=== PATIENT | female | born 1995 | race American Indian/Alaskan Native ===

== ENCOUNTER 2016-11-21 14:22 | Observation (INO) | payer MEDICAID ==
[2016-11-21 14:27] VITALS: RESP 18; O2SAT 100
--- NOTE | 2016-11-21 14:40 | C.PDOC ---
Time Seen by Provider: 11/21/16 14:40 Chief Complaint (Nursing): Abdominal Pain Past Medical History Vital Signs: Last Vital Signs Temp 97.8 F 11/21/16 14:26 Pulse 78 11/21/16 14:26 Resp 18 11/21/16 14:26 BP 106/74 11/21/16 14:26 Pulse Ox 100 11/21/16 14:26 - Social History Hx Alcohol Use: No Hx Substance Use: No - Immunization History Hx Tetanus Toxoid Vaccination: Yes Hx Influenza Vaccination: No Hx Pneumococcal Vaccination: Yes ED Course And Treatment O2 Sat by Pulse Oximetry: 100 Disposition - Disposition Forms: [email or web address] (Greek)
--- NOTE | 2016-11-21 14:46 | C.PDOC ---
History Of Present Illness 21 year old female presents to the ED with complaints of new onset of sharp and localized right pelvic and right lower quadrant pain beginning two hours prior to arrival. Patient is 0 2 1. She also complains of vaginal spotting and dry mouth. Patient notes EGA is 6 weeks and has had many episodes of vomiting "due to the ." She has a history of prior UTIs "due to dehydration." Patient denies fever, past surgical history, or other complaints at this time. Time Seen by Provider: 11/21/16 14:40 Chief Complaint (Nursing): Abdominal Pain History Per: Patient History/Exam Limitations: no limitations Onset/Duration Of Symptoms: Hrs (2 hours prior to arrival ) Current Symptoms Are (Timing): Still Present Quality Of Discomfort: "Pain" Associated Symptoms: Vomiting (patient attributes to ). denies: Fever , Chills Recent travel outside of the [place]: No Abnormal Vaginal Bleeding: Yes : 4 Para: 1 Past Medical History Reviewed: Historical Data, Nursing Documentation, Vital Signs Vital Signs: Last Vital Signs Temp 97.8 F 11/21/16 14:26 Pulse 78 11/21/16 14:26 Resp 18 11/21/16 14:26 BP 106/74 11/21/16 14:26 Pulse Ox 100 11/21/16 17:27 Family History: States: Unknown Family Hx - Social History Hx Alcohol Use: No Hx Substance Use: No - Immunization History Hx Tetanus Toxoid Vaccination: Yes Hx Influenza Vaccination: No Hx Pneumococcal Vaccination: Yes Review Of Systems Constitutional: Negative for: Fever, Chills Cardiovascular: Negative for: Chest Pain Respiratory: Negative for: Shortness of Breath Gastrointestinal: Positive for: Vomiting (patient attributes to ), Abdominal Pain Genitourinary: Positive for: Pelvic Pain (right pelvic pain ) Physical Exam - Physical Exam Appears: Non-toxic, In Acute Distress (patient appears to be in mild distress ) Skin: Warm, Dry Head: Atraumatic Eye(s): bilateral: Normal Inspection Oral Mucosa: Dry Neck: Supple Chest: Symmetrical, No Deformity Cardiovascular: Rhythm Regular Respiratory: Normal Breath Sounds, No Rales, No Rhonchi, No Wheezing Gastrointestinal/Abdominal: Soft, Tenderness (RLQ tenderness ), No Distention, No Guarding, No Rebound, Other (Abdomen is gravid ) Neurological/Psych: Oriented x3, Normal Speech, Normal Cognition ED Course And Treatment - Laboratory Results Result Diagrams: 11/21/16 14:54 11/21/16 14:54 O2 Sat by Pulse Oximetry: 100 (room air ) - CT Scan/US Transvaginal US Other Rad Studies (CT/US): Read By Radiologist, Radiology Report Reviewed CT/US Interpretation: UTERUS: Measures 11.1 x 6.2 x 6.9 cm. Normal in size and appearance. No fibroid or other mass lesion seen. ENDOMETRIUM: Intrauterine gestation identified. Mean sac diameter measures 1 point 7 cm. Yolk sac and pole are identified with heart rate recorded 93 beats per minute. Trace implantation related hemorrhage may be present the inferior margins of the decidual reaction. Mean crown-rump length measurement is 0.35 cm corresponding to an average ultrasonic age of 6 weeks 0 days. CERVIX: No cervical abnormality identified. RIGHT OVARY: Measures 4.2 x 2.2 x 3.1 cm. No solid mass. Normal intra-ovarian arterial blood flow. LEFT OVARY: Measures 5.2 x 4.1 x 6.3 cm. No solid mass. Normal intra-ovarian arterial blood flow. A corpus luteum cyst identified measuring 2.6 by 2.7 x 2.9 cm. Developing follicles are delete identified in the left ovary as well. FREE FLUID: A mild amount of anechoic fluid is seen in the cul-de-sac. OTHER FINDINGS: None. IMPRESSION: A single viable intrauterine gestation is identified within the endometrial cavity with an average ultrasonic age of 6 weeks 0 days based on mean crown-rump length measurement. Gestational dates based on LMP of 7 weeks 1 day. Trace implantation related hemorrhage is suggested related to the inferior margins of the decidual reaction. Clinical follow-up advised. Sonographic follow -up can be performed as clinically warranted. No ectopic gestation identified. Renal US Other Rad Studies (CT/US): Read By Radiologist, Radiology Report Reviewed CT/US Interpretation: FINDINGS: RIGHT KIDNEY: Measures: 11.4 x 3.4 x 3.3 cm. Normal in size, contour and echogenicity. No stone, solid mass lesion or hydronephrosis visualized. No perinephric fluid collection. LEFT KIDNEY: Measures: 10.9 x 5.6 x 3.4 cm. Normal in size, contour and echogenicity. No stone, solid mass lesion or hydronephrosis visualized. No perinephric fluid collection. OTHER FINDINGS: None. IMPRESSION: Unremarkable renal sonogram. Progress Note: UA, OB transvaginal US, and renal US were ordered. Patient was given Tylenol. Progress - Data Reviewed Data Reviewed: Lab, Diagnostic imaging, EKG, Old records ED OBSERVATION Discharge: Yes Date of observation admission: 11/21/16 Time of observation admission: 14:45 - Observation admission statement Patient is being placed in observation because:: ABD PAIN, PREG DEHYDRATION - Goals of Observation Goals of observation are:: NEG ACUTE ABD, SX IMPROVE - Progress Note Progress Note: 11/21/16 17:32 FEELS BETTER. TOLERATING PO WO DIFF. VSS Disposition Counseled Patient/Family Regarding: Studies Performed, Diagnosis, Need For Followup, Rx Given - Disposition Disposition: HOME/ ROUTINE Disposition Time: 17:33 Condition: IMPROVED - Clinical Impression Clinical Impression: Threatened , Nausea, Vomiting - Scribe Statement The provider has reviewed the documentation as recorded by the Janyibcarlos Avila All medical record entries made by the Janyibcarlos were at my direction and personally dictated by me. I have reviewed the chart and agree that the record accurately reflects my personal performance of the history, physical exam, medical decision making, and the department course for this patient. I have also personally directed, reviewed, and agree with the discharge instructions and disposition.
[2016-11-21 15:05] LABS: BASO # 0.1 K/uL (0.0-0.2); BASO % 1.1 % (0.0-2.0); EOS % 0.5 % (0.0-4.0); HEMATOCRIT 37.4 % (34.0-47.0); LYMPH # 1.2 K/uL (1.0-4.3); LYMPH % 17.5 % (20.0-40.0); MEAN CELL VOLUME 68.6 fL (81.0-99.0); MEAN CORPUSCULAR HEMOGLOBIN 22.1 pg (27.0-31.0); MEAN CORPUSCULAR HGB CONC 32.2 g/dL (33.0-37.0); MEAN PLATELET VOLUME 6.8 fL (7.2-11.7); MONO # 0.3 K/uL (0.0-0.8); MONO % 4.4 % (0.0-10.0); WHITE BLOOD COUNT 6.9 K/uL (4.8-10.8)
[2016-11-21 15:17] LABS: ALB/GLOB RATIO 1.1 (1.0-2.1); ALKALINE PHOSPHATASE 45 U/L (38-126); ALT/SGPT 23 U/L (9-52); AST/SGOT 16 U/L (14-36); BILIRUBIN,TOTAL 1.5 mg/dL (0.2-1.3); BLOOD UREA NITROGEN 12 mg/dL (7-17); CARBON DIOXIDE 24 mmol/L (22-30); CHLORIDE 99 mmol/L (98-107); GFR AFRICAN-AMERICAN > 60; GLUCOSE,RANDOM 74 mg/dL (65-105); POTASSIUM 3.9 mmol/L (3.6-5.2); SODIUM 137 mmol/L (132-148); TOTAL PROTEIN 7.7 g/dL (6.3-8.3)
--- NOTE | 2016-11-21 15:54 | US ---
PROCEDURE: Ultrasound of the Kidneys HISTORY: R PELVIC PAIN RO PYELO COMPARISON: None available. TECHNIQUE: Sonogram of the kidneys. FINDINGS: RIGHT KIDNEY: Measures: 11.4 x 3.4 x 3.3 cm. Normal in size, contour and echogenicity. No stone, solid mass lesion or hydronephrosis visualized. No perinephric fluid collection. LEFT KIDNEY: Measures: 10.9 x 5.6 x 3.4 cm. Normal in size, contour and echogenicity. No stone, solid mass lesion or hydronephrosis visualized. No perinephric fluid collection. OTHER FINDINGS: None. IMPRESSION: Unremarkable renal sonogram.
--- NOTE | 2016-11-21 16:00 | US ---
HISTORY: vb RO ECTOPIC, last menstrual period is reported 10/02/2016. This suggests an estimated gestational age of 7 weeks 1 day. COMPARISON: None available. TECHNIQUE: Transvaginal pelvis ultrasound was performed with longitudinal and transverse images submitted for interpretation. FINDINGS: UTERUS: Measures 11.1 x 6.2 x 6.9 cm. Normal in size and appearance. No fibroid or other mass lesion seen. ENDOMETRIUM: Intrauterine gestation identified. Mean sac diameter measures 1 point 7 cm. Yolk sac and pole are identified with heart rate recorded 93 beats per minute. Trace implantation related hemorrhage may be present the inferior margins of the decidual reaction. Mean crown-rump length measurement is 0.35 cm corresponding to an average ultrasonic age of 6 weeks 0 days. CERVIX: No cervical abnormality identified. RIGHT OVARY: Measures 4.2 x 2.2 x 3.1 cm. No solid mass. Normal intra-ovarian arterial blood flow. LEFT OVARY: Measures 5.2 x 4.1 x 6.3 cm. No solid mass. Normal intra-ovarian arterial blood flow. A corpus luteum cyst identified measuring 2.6 by 2.7 x 2.9 cm. Developing follicles are delete identified in the left ovary as well. FREE FLUID: A mild amount of anechoic fluid is seen in the cul-de-sac. OTHER FINDINGS: None. IMPRESSION: A single viable intrauterine gestation is identified within the endometrial cavity with an average ultrasonic age of 6 weeks 0 days based on mean crown-rump length measurement. Gestational dates based on LMP of 7 weeks 1 day. Trace implantation related hemorrhage is suggested related to the inferior margins of the decidual reaction. Clinical follow-up advised. Sonographic follow-up can be performed as clinically warranted. No ectopic gestation identified.
[2016-11-21 17:08] LABS: RBC URINE 1 /hpf (0-3); URINE BACTERIA RARE (<OCC); URINE BILIRUBIN NEGATIVE (NEGATIVE); URINE BLOOD NEGATIVE (NEGATIVE); URINE COLOR Yellow (YELLOW); URINE GLUCOSE (UA) NORMAL (Normal); URINE KETONE 1+ mg/dL (NEGATIVE); URINE LEUKOCYTE ESTERASE TRACE Leu/uL (Negative); URINE PROTEIN NEGATIVE (NEGATIVE); WBC URINE 12 /hpf (0-5)
[2016-11-21 17:40] VITALS: BP 100/62; PULSE 76; TEMP 98.5
== END 2016-11-21 17:33 | disposition home or self-care (01) ==
LOC: C.ER 14:22 → C.9OBSV 14:45
PROVIDERS: ADMIT Emergency Medicine; ATTEND Emergency Medicine
DX: O20.0 Threatened abortion (principal); O21.9 Vomiting of pregnancy, unspecified; O34.81 Maternal care for other abnormalities of pelvic organs, first trimester; N83.12 Corpus luteum cyst of left ovary; Z3A.01 Less than 8 weeks gestation of pregnancy
CPT/HCPCS: 76770; 76817; 80053; 81001; 84702; 85025; 86850; 86900; 87086; 99284; G0378